=== PATIENT | male | born 1985 | race Caucasian/White ===

== ENCOUNTER 2024-02-07 04:29 | Emergency (ER) | payer OTHER, SELFPAY ==
[2024-02-07 04:32] VITALS: BP 134/78
--- NOTE | 2024-02-07 04:51 | ED.GENMED ---
History of Present Illness
General
Chief Complaint: Male Genito-Urinary Symptoms
Source: patient and spouse
Exam Limitations: none
Time Seen by Provider: 02/07/24 04:36
Nursing documentation reviewed up to this point in time: agreed with
Travel History
Have you had any contact with someone who has COVID-19?: No
Do you have any symptoms of coronavirus? Fever > 100 degrees, chills, cough, shortness of breath, sore throat, loss of taste or smell, muscle aches, or headache?: No
History of Present Illness
History of Present Illness:
Pleasant 38-year-old male presents after having a Trimix injection in the shaft of his penis. He states that it has been swelling and is painful. He states he got it from a 'friend'. Denies any penile discharge. Reports no fever, chills, nausea
or vomiting.
Review of Systems
Review of Systems
Allergies reviewed?: Yes
All Other Systems: ROS reviewed and negative except as documented in HPI and ROS
Constitutional: Reports no symptoms
EENT: Reports no symptoms
Respiratory: Reports no symptoms
Cardiac: Reports no symptoms
ABD/GI: Reports no symptoms
: Reports no symptoms
Musculoskeletal: Reports no symptoms
Skin: Reports other (Swelling)
Neurological: Reports no symptoms
Endocrine: Reports no symptoms
Hematologic/Lymphatic: Reports no symptoms
Psychiatric: Reports no symptoms
Phy Exam
Physical Exam
Physical Exam:
Physical Exam
Vital signs and allergy list reviewed and agreed with.
GENERAL: Alert , in minimal apparent distress
EYE: pupils equal, EOMI, anicteric
NECK: Supple, no significant adenopathy. No masses. Trachea midline
ENT: Oropharynx is clear, mmm.
CARDIAC: Regular rate and rhythm . No M/R/G
LUNGS: Clear breath sounds bilaterally, no acute respiratory distress, no wheezes/rales/rhonchi
ABDOMEN: Soft, without focal tenderness, no r/g
Genital exam performed in the presence of male nurse shows swollen scrotum. Erythematous penile shaft
NEUROLOGICAL: Alert and oriented, no focal neuro deficits
SKIN: Warm and dry, skin intact. Erythema in the scrotum is noted
MUSCULOSKELETAL: No edema, well perfused. Moves all 4 extremities
PSYCH: Normal and appropriate interaction.
Genitourinary Exam Male
Exam Male: circumcised and other (Swelling of the penis)
Testicular Exam: Scrotal swollen: Bilateral
Neurological Exam
Neurological Exam: alert
Course
Orders/Labs/Results
Orders:
Orders
02/07/24 04:45
US Scrotum Urgent
Comment:
Reason For Exam: swelling
02/07/24 04:59
Ceftriaxone Sodium [Rocephin] 1,000 mg IM NOW STA
02/07/24 05:02
Sterile Water [Sterile Water For Injection] 10 ml .ROUTE .[facility]
Vital Signs
Initial and Last Documented VS:
Initial Vital Signs
Temp Pulse Resp BP Pulse Ox
97.8 F 92 19 134/78 98
02/07/24 04:32 02/07/24 04:32 02/07/24 04:32 02/07/24 04:32 02/07/24 04:32
Last Documented Vital Signs
Temp Pulse Resp BP Pulse Ox
97.8 F 90 18 130/70 99
02/07/24 04:32 02/07/24 06:56 02/07/24 06:56 02/07/24 06:56 02/07/24 06:56
*Critical Care Note
Total Time (30-74mins, 75-104mins- exclusive of procedures): Not Applicable
Update Note
Update Note:
Spoke with Dr. Luna who recommended a dose of Rocephin now and 7 days of Augmentin. Follow-up in the office. Ice for pain.
ED Attending Note
-
Portions of this chart may have been created with voice recognition software.� Occasional wrong word or��sound alike� substitutions may have occurred due to the inherent limitations of voice recognition software.
Discharge Plan
Departure
Patient Disposition: Home (Routine Discharge)
Date of Disposition: 02/07/24
Time of Disposition: 05:43
Patient with high blood pressure during this ER visit?: Yes
Condition: Good
Discharge Problem:
Swelling of penis, Drug reaction
Instructions: Adverse Drug Reactions, Adult ED, BLOOD PRESSURE
Prescriptions:
New
amoxicillin-pot clavulanate 875-125 mg tablet
1 tab PO BID Qty: 14 0RF
Referrals:
Andrei Luna Jr., MD [Active] - Next open appointment
Activity Restrictions/Additional Instructions:
It was a pleasure meeting you and taking part in your care. We hope for your continued healing and wellness.
Please read discharge instructions in their entirety. However, they are for general education and may not describe your exact diagnosis at discharge. Information on your ER visit and medical conditions were discussed with you along with appropriate
follow up information...
If indicated, please take your medications as instructed and indicated on discharge paperwork.
Please schedule a follow up appointment as directed. Call to schedule an appointment
Please return to the emergency department with ANY change in, persisting, or worsening of symptoms. If any of your symptoms do not improve, or persist, or become more severe within 6-12 hours, please return to the emergency department for further
care.
Please return to the emergency department if you develop a headache, neck pain/stiffness, fever greater than 100.4F, chest pain, shortness of breath, persistent nausea, vomiting, slurred speech, difficulty walking, numbness/tingling, weakness, signs
of infection or any other symptoms that are worrisome to you.
If you have any questions or concerns please do not hesitate to call the Hospital at or E-mail me directly at [email or web address]
Interventions
Interventions:
*Risk Screen - Suicide Last Done: 02/07/24 04:32
*General Assessment Last Done: 02/07/24 04:32
*Neglect/Abuse Screening Last Done: 02/07/24 04:32
ED- Fall Risk Assessment Last Done: 02/07/24 04:59
*ED COVID-19 Vaccine History Last Done: 02/07/24 04:32
*Nursing Disposition Last Done: 02/07/24 06:56
ED-Male Genitourinary Assessment Last Done: 02/07/24 04:56
Discharge Date and Time
Discharge Date/Time: 02/07/24 06:56
Print Language: WALLISIAN
[2024-02-07] MEDS: ROCEPHIN 1000 MG IM (05:09)
[2024-02-07 06:56] VITALS: BP 130/70
== END 2024-02-07 06:56 | disposition home or self-care (01) ==
LOC: EMR 04:29
PROVIDERS: EMERGENCY PHYSICIAN Student in an Organized Health Care Education/Training Program
DX: N48.89 Other specified disorders of penis (principal); T46.7X5A Adverse effect of peripheral vasodilators, initial encounter
CPT/HCPCS: 99284; 96372; 76870; 93976